=== PATIENT | male | born 1950 | race Caucasian/White ===

== ENCOUNTER 2022-06-12 06:31 | Day surgery (SDC) | payer MEDICARE, SELFPAY ==
[2022-06-12] VITALS (11 sets, daily range): BP systolic 142–180; BP diastolic 85–100; PULSE 61–68; RESP 14–20; TEMP 36.3; O2SAT 92–98; BMI 31.6
[2022-06-12] MEDS: lidocaine HCL 2 % MULTIDOSE 20 ML VIAL INJECTION (07:29)
[2022-06-12] MEDS: BUPIVACAINE 0.5% 30 ML INJECTION (07:29)
--- NOTE | 2022-06-12 07:56 | P.ORPRC_ITS ---
Procedure Note Date of procedure: 06/12/22 Procedure: Preop diagnosis: Left upper extremity carpal tunnel syndrome Postop diagnosis: Left upper extremity carpal tunnel syndrome Procedure: Left upper extremity carpal tunnel release Anesthesia: Local Surgeon: Demond Gilman MD administrative assistant office manager: HEYDI Roger EBL: 5 mL Complications: None Specimens: None Drains: None Indications: The patient has a history of left upper extremity carpal tunnel syndrome symptoms. Despite appropriate nonoperative management consisting of nighttime bracing and occupational therapy they continue to have symptoms. Operative intervention was recommended. The risks, benefits alternatives and expected outcomes were discussed in detail. These included but were not limited to: Infection, bleeding, injury to blood vessel or nerve, venous thromboembolism. All questions were answered to their satisfaction. The patient was placed supine on the operating room table. Local anesthesia was established with 0.5% Marcaine without epinephrine and 2% lidocaine without epinephrine. The hand was prepped and draped in usual sterile fashion. The limb was elevated the forearm pneumatic tourniquet was inflated to 250 mm of mercury. A longitudinal incision was made centered over the radial border of the ring f sydnie at the base of the palm. Subcutaneous dissection was sharply taken through the palmar fascia and the palmaris brevis to the transverse carpal ligament. The ligament was divided in line with the incision. Proximal and distal dissection was carried with tenotomy and Metzenbaum scissors for a wide decompression of the carpal tunnel. The tourniquet was released, bleeding was controlled with direct pressure. The wound was closed with a 3-0 nylon. A bulky dry dressing was applied, sponge and needle counts were correct x 2. The patient tolerated the procedure well, there were no apparent complications. They were sent to same day surgery in satisfactory condition. Plan: Use of the hand as tolerates. Discontinue the intraoperative dressing on postoperative day 3 and may get the wound wet as tolerates. Follow up in the office in 2 weeks for a wound check and suture removal.
== END 2022-06-12 08:29 | disposition home or self-care (01) ==
PROVIDERS: PCP Family Medicine; Visit Provider Orthopaedic Surgery
PROC: (CPT 64721; principal; 2022-06-12 07:30)
DX: G56.02 Carpal tunnel syndrome, left upper limb (principal)
CPT/HCPCS: 64721; J3490

== ENCOUNTER 2022-07-26 06:30 | Day surgery (SDC) | payer MEDICARE, SELFPAY ==
[2022-07-26] VITALS (10 sets, daily range): BP systolic 130–147; BP diastolic 58–76; PULSE 59–67; RESP 16; TEMP 36.3–36.6; O2SAT 96–97; BMI 31.6
[2022-07-26] MEDS: lidocaine HCL 2 % MULTIDOSE 20 ML VIAL 10 ML INJECTION (07:10)
[2022-07-26] MEDS: BUPIVACAINE 0.5% 30 ML 10 ML INJECTION (07:30)
--- NOTE | 2022-07-26 07:57 | PM.ORPRC ---
Procedure Note Date of procedure: 07/26/22 Procedure: Preop diagnosis: Right upper extremity carpal tunnel syndrome Postop diagnosis: Right upper extremity carpal tunnel syndrome Procedure: Right upper extremity carpal tunnel release Anesthesia: Local Surgeon: Demond Gilman MD technical services assistant: ALEXA Kaiser EBL: 5 mL Complications: None Specimens: None Drains: None Indications: The patient has a history of right upper extremity carpal tunnel syndrome symptoms. Despite appropriate nonoperative management consisting of nighttime bracing and occupational therapy they continue to have symptoms. Operative intervention was recommended. The risks, benefits alternatives and expected outcomes were discussed in detail. These included but were not limited to: Infection, bleeding, injury to blood vessel or nerve, venous thromboembolism. All questions were answered to their satisfaction. The patient was placed supine on the operating room table. Local anesthesia was established with 0.5% Marcaine without epinephrine and 2% lidocaine without epinephrine. The hand was prepped and draped in usual sterile fashion. The limb was elevated the forearm pneumatic tourniquet was inflated to 250 mm of mercury. A longitudinal incision was made centered over the radial border of the ring finger at the base of the palm. Subcutaneous dissection was sharply taken through the palmar fascia and the palmaris brevis to the transverse carpal ligament. The ligament was divided in line with the incision. Proximal and distal dissection was carried with tenotomy and Metzenbaum scissors for a wide decompression of the carpal tunnel. The tourniquet was released , bleeding was controlled with direct pressure. The wound was closed with a 3-0 nylon. A bulky dry dressing was applied, sponge and needle counts were correct x 2. The patient tolerated the procedure well, there were no apparent complications. They were sent to same day surgery in satisfactory condition. Plan: Use of the hand as tolerates. Discontinue the intraoperative dressing on postoperative day 3 and may get the wound wet as tolerates. Follow up in the office in 2 weeks for a wound check and suture removal.
== END 2022-07-26 08:19 | disposition home or self-care (01) ==
PROVIDERS: PCP Family Medicine; Visit Provider Orthopaedic Surgery
PROC: (CPT 64721; principal; 2022-07-26 07:30)
DX: G56.01 Carpal tunnel syndrome, right upper limb (principal)
CPT/HCPCS: 64721; J3490

== ENCOUNTER 2023-06-03 08:00 | Outpatient (RCR) | payer MEDICARE, SELFPAY | END 2023-06-27 14:39 | disposition home or self-care (01) | PROVIDERS: PCP Family Medicine; Visit Provider Physician Assistant Medical | DX: M67.88 Other specified disorders of synovium and tendon, other site (principal); Z51.89 Encounter for other specified aftercare | CPT/HCPCS: 97110; 97140; 97161 ==

== ENCOUNTER 2025-06-08 08:57 | Outpatient (CLI) | payer MEDICARE, SELFPAY | END 2025-06-08 08:58 | disposition home or self-care (01) | LOC: AMB 06-11 02:21 | PROVIDERS: PCP Family Medicine; Visit Provider Student in an Organized Health Care Education/Training Program | DX: S89.92XA Unspecified injury of left lower leg, initial encounter (principal); W17.2XXA Fall into hole, initial encounter; Y92.007 Garden or yard of unspecified non-institutional (private) residence as the place of occurrence of the external cause | CPT/HCPCS: A0425; A0427 ==

== ENCOUNTER 2025-06-08 09:34 | Emergency (ER) | payer MEDICARE, SELFPAY ==
--- NOTE | 2025-06-08 09:39 | CRLHL7_ITS ---
For Patients: As a result of the Century Cures Act, medical imaging exams and procedure reports are released immediately into your electronic medical record. You may view this report before your referring provider. If you have questions, please contact your health care provider. INDICATION: fall, knee pain, appears to have torn patellar tendon. (Sic) COMPARISON: None available. TECHNIQUE: Three views of the left knee. FINDINGS: Mineralization: Normal. Alignment: Normal. Bones and Joints: No fracture is identified. Mild medial tibiofemoral and patellofemoral osteoarthrosis. Soft Tissues: Prepatellar soft tissue swelling. No evidence of patella ben on the cross-table lateral view. The lower patellar tendon appears to be redundant. A partial patellar tendon tear is not excluded. No significant joint effusion. IMPRESSION: Prepatellar soft tissue swelling. No evidence of patella ben on the cross-table lateral view. The lower patellar tendon appears to be redundant. A partial patellar tendon tear is not excluded. No significant joint effusion. No fracture or dislocation. Dictated by Andi Fairbanks MD @ 06/08/2025 10:56:33 AM (Electronically Signed)
[2025-06-08 09:46] VITALS: BP 114/89; PULSE 88; RESP 18; TEMP 36.3; O2SAT 96; BMI 31.9
--- OUTSIDE RECORDS SUMMARY | 2025-06-08 10:34 | XMS_ITS | Encounter Summary ---
Author Organization [employer] Address [address] [place] [address] Care Team Providers Care Abrasive Grinder Name Role Phone Jose Alfredo Elizabeth MD Primary Care Provider [phone]- [phone] Encounter Details Date Type Department Care Team (Late st Contact Info) Description 11/30/2013 Orders Only [facility] [address] [place] [address] Law Thompson MD [address] [facility] [place] [address] Social History Tobacco Use Types Packs/Day Years Used Date Smoking Tobacco: Never Assessed Sex and Gender Information Value Date Recorded Sex Assigned at Not on file Legal Sex Male 6:44 AM CDT Gender Identity Not on file Sexual Orientation Not on file documented as of this encounter Plan of Treatment Not on file documented as of this encounter Visit Diagnoses Not on filedocumented in this encounter Care Teams Abrasive Grinder Relationship Specialty Start Date End Date Jose Alfredo Elizabeth MD [address] [place] [address] PCP - General 11/26/13 documented as of this encounter
--- OUTSIDE RECORDS SUMMARY | 2025-06-08 10:34 | XMS_ITS | Encounter Summary ---
Author Organization [employer] Address [address] [place] [address] Care Team Providers Care Medical Oncologist Name Role Phone Jose Alfredo Elizabeth MD Primary Care Provider +1- [phone] Encounter Details Date Type Department Care Team (Late st Contact Info) Description 01/19/2025 Notes/Orders [facility] [place] [address] [place] [address] Tom Moreno MD [address] [facility] [place] [address] Social History Tobacco Use Types Packs/Day Years Used Date Smoking Tobacco: Never Smokeless Tobacco: Never Alcohol Use Standard Drinks/Week Comments Not Asked 0 (1 standard drink = 0.6 oz pur e alcohol) ocassioanlly Sex and Gender Information Value Date Recorded Sex Assigned at Not on file Legal Sex Male 6:44 AM CDT Gender Identity Not on file Sexual Orientation Not on file documented as of this encounter Plan of Treatment Not on file documented as of this encounter Visit Diagnoses Not on filedocumented in this encounter Care Teams Medical Oncologist Relationship Specialty Start Date End Date Jose Alfredo Elizabeth MD [address] [place] [address] PCP - General 11/26/13 documented as of this encounter
--- OUTSIDE RECORDS SUMMARY | 2025-06-08 10:34 | XMS_ITS | Clinical Summary ---
Author Organization [facility] Address [address] [place] [address] Care Team Providers Care Inner Tube Tuber Machine Operator Name Role Phone Jose Alfredo Elizabeth MD Primary Care Provider +1- [phone] Source Comments You are receiving this document as you are listed as the primary care provider,follow-up provider, or the patient has been referred to you for consultation.This is in compliance with the Medicare and[facility] EHR Incentive Program,which states Providers who transition their patient to another setting of careor provider of care or refers their patient to another provider of care shouldprovide summary care record for each transition of care or referral. [facility] [employer] Allergies No known active allergies Medications aspirin EC 81 MG enteric coated tablet Take 1 Tablet (81 mg) by mouth daily. 4 Active quinapril (ACCUPRIL) 10 MG tablet Take 1 Tablet (10 mg) by mouth daily at bedtime. 4 Active simvastatin (ZOCOR) 40 MG tablet Take 1 Tablet (40 mg) by mouth daily at bedtime. 4 Active atorvastatin (LIPITOR) 40 MG tablet Take by mouth. 4 Active lisinopril (ZESTRIL) 10 MG tablet Take 1 Tablet (10 mg) by mouth daily. 4 Active hydrOXYzine HCl (ATARAX) 25 MG tablet Take 1-2 Tablets (25-50 mg) by mouth every 4 hours as needed for Pain. 25 Tablet 1 4 Active Additional Information Patient not taking.Reported on 04/27/2024 HYDROcodone-radha taminophen (NORCO) 5-325 MG tablet Take 1-2 Tablets by mouth every 4 hours as needed. 25 Tablet 4 Active Additional Information Patient not taking.Reported on 04/27/2024 Active Problems Problem Noted Date Diagnosed Date Pain, joint, ankle and foot, right 03/02/2024 Social History Tobacco Use Types Packs/Day Years Used Date Smoking Tobacco: Never Smokeless Tobacco: Never Alcohol Use Standard Drinks/Week Comments Not Asked 0 (1 standard drink = 0.6 oz pur e alcohol) ocassioanlly Sex and Gender Information Value Date Recorded Sex Assigned at Not on file Legal Sex Male 6:44 AM CDT Gender Identity Not on file Sexual Orientation Not on file Last Filed Vital Signs Vital Sign Reading Time Taken Comments Blood Pressure 130/78 03/13/2024 10:15 AM CDT Pulse 57 03/13/2024 10:15 AM CDT Temperature 36.7 C (98 F) 03/13/2024 9:42 AM CDT Respiratory Rate 18 03/13/2024 10:15 AM CDT Oxygen Saturation 98% 03/13/2024 10:15 AM CDT Inhaled Oxygen Concentration - - Weight 102.5 kg (226 lb) 03/13/2024 7:13 AM CDT Height 182.9 cm (6') 03/13/2024 7:13 AM CDT Body Mass Index 30.65 03/13/2024 7:13 AM CDT Plan of Treatment Health Maintenance Due Date Last Done Comments Colon Cancer Screening Plan Due 1950 Hep C Screening (Preventive Services) 1950 Medicare Welcome Visit 1950 Cholesterol 01/31/1987 DTaP/Tdap/Td Vaccine (2 - Tdap) 12/05/2020 12/05/2010 COVID-19 Vaccine ( season) 2025 06/04/2022, 06/14/2021, 10/13/2020, Additional history exists Influenza Vaccine (#1) 2025 3, 06/04/2022, 06/14/2021, Additional history exists RSV Vaccine (1 - 1-dose 75+ series) 01/31/2027 Pneumococcal Vaccine 50+ Yrs Completed 06/26/2018, 07/02/2017 Zoster/Shingles Vaccine Completed 12/01/19, 08/06/2020, 11/03/2012 HepA Vaccine Aged Out No longer eligi ble based on patient's age to complete this topic HepB Vaccine Aged Out No longer eligi ble based on patient's age to complete this topic Hib Vaccine Aged Out No longer eligi ble based on patient's age to complete this topic MCV4 Vaccine Aged Out No longer eligi ble based on patient's age to complete this topic Meningococcal B Vaccine Aged Out No l onger eligible based on patient's age to complete this topic Medical Devices Implanted Type Area Chief Strategy Officer Device Identifier Shelf Expiration Date Model / Serial / Lot Scr Tnds Peek Vnt 8x23mm - [id number] Implanted:Qty: 1 on 03/13/2024 by Tom Moreno MD at [facility] Right: [employer] 06/13/2028 AR-[id number] / 0 / [id number] Miller Cskr 4.5x14 - [id number] Implanted:Qty: 2 on 03/13/2024 by Tom Moreno MD at [facility] Right: [employer] 04/13/2027 [id number] / 0 / [id number] Insurance UCARE MEDICARE UCARE MEDICARE [facility] Care Teams Inner Tube Tuber Machine Operator Relationship Specialty Start Date End Date Jose Alfredo Elizabeth MD [address] [address] PCP - General 11/26/13
--- OUTSIDE RECORDS SUMMARY | 2025-06-08 10:34 | XMS_ITS | Clinical Summary ---
Author Organization [facility] Address [address] [place] [id number] Care Team Providers Care Upsetting Machine Operator Name Role Phone Surya Ribera MD Unavailable [phone] Allergies No known active allergies Medications lisinopriL (PRINIVIL; ZESTRIL) 10 mg tabletIndications:H TN (hypertension) TAKE 1 TABLET BY MOUTH EVERY DAY 90 Tablet 5 Active atorvastatin (LIPITOR) 40 mg tabletIndications:M ixed hyperlipidemia TAKE 1 TABLET (40 MG) BY MOUTH AT BEDTIME. 90 Tablet 5 Active Active Problems Problem Noted Date Diagnosed Date Pseudopolyposis of colon wit hout complication, unspecified part of colon 01/04/2023 Type 2 diabetes mellitus wit hout complication, without long-term current use of insulin 08/29/2021 Elevated glucose 06/20/2017 Prostate cancer 10/26/2011 Mixed hyperlipidemia 10/26/2011 Benign neoplasm of colon 08/09/2009 Overview (07/17/2022): Colonoscopy 07/2009 polyps repeat in 3 years Colonoscopy 02/2016 multiple polyps repeat in 3 years Colonoscopy 04/2019 polyps, repeat in 3 years Colonoscopy 06/2022 1-TA, repeat in 5 years Unspecified essential hypertension Encounters Date Type Department Care Team Description 05/11/2025 Telephone [facility] [address] [place] [address] Anthony Haji MD Lab 04/15/2025 Refill [facility] [address] [place] [address] Votel, Anthony Villalpando MD Refill Request (Lisinopril, Atorvastatin) from Last 3 Months Immunizations Immunization Administration Dates Next Due COVID-19 vaccine (Moderna 10 0mcg/0.5mL) PF, MDV 10/13/2020 Influenza Virus, Unspecified 05/24/2010 Influenza, High-dose Inactivated 04/14/2018 Influenza, High-dose Quadriv alent Inactivated 06/04/2022 Influenza, IIV3 (Age 6-35 mos) 04/30/2011 Influenza, IIV3 (Age >=3 years) 04/30/2011,05/24 Influenza, IIV4 03/29/2016 Influenza, IIV4 (=>6mos) MDV 04/15/2017 Influenza, Inactivated AIIV4 (Age 65+ Years) Preserv Free 04/29/2023 Influenza, Inactivated IIV3 (Age 65+ Years) Preserv Free 06/14/2021,06/01/2019 Pneumococcal Poly,23-Valent (Pneumovax) 06/26/20 18 Pneumococcal conj 13-Valent (Prevnar 13) 017 TD, UNSPECIFIED 07/15/1998 Td (Age >=7 Years) 07/15/2001,10/17/1998, 999 Tdap 12/05/2010 Zoster (Shingrix-RZV, recombinant) 11/30/2020, Zoster (Zostavax-ZVL, live) 11/03/2012 Family History Medical History Relation Name Comments Hyperlipidemia Brother 2 Good Health Daughter 2 Heart Disease Father [place] age 40 Unknown Maternal Grandfather Unknown Maternal Grandmother Hyperlipidemia Mother Hypertension Mother Unknown Paternal Grandfather Unknown Paternal Grandmother Good Health Sister 2 Good Health Son 3 Good Health Son 4 Cancer Son 5 melanoma Relation Name Status Comments Brother 1 Alive Brother 2 Daughter 1 Alive Daughter 2 Father Maternal Grandfather Maternal Grandmother Mother Paternal Grandfather Paternal Grandmother Sister 1 Alive Sister 2 Son 1 Alive Son 2 Alive Son 3 Son 4 Son 5 Social History Tobacco Use Types Packs/Day Years Used Date Smoking Tobacco: Never Smokeless Tobacco: Never Tobacco Cessation:Counseling Given: Yes Alcohol Use Standard Drinks/Week Comments Yes 2 (1 standard drink = 0.6 oz pur e alcohol) 2 drinks per week PHQ-2 Answer Date Recorded PHQ-2 TOTAL SCORE 0 01/03/2023 Social Connections Answer Date Recorded Frequency of Communication with Friends and Fami ly 0 04/30/2023 Financial Resource Strain Answer Date R ecorded Difficulty of Paying Living Expenses 3 04/30/2023 Difficulty of Paying Living Expenses Not on file 04/30/2023 Food Insecurity Answer Date Recorded Worried About Running Out of Food in the Last Ye ar 1 04/30/2023 Transportation Needs Answer Date Record ed Lack of Transportation (Medical) 1 04/30/2023 Housing Stability Answer Date Recorded Unable to Pay for Housing in the Last Year 1 04/30/2023 Sex and Gender Information Value Date Recorded Sex Assigned at Not on file Legal Sex Male 7:05 AM INFORMATION SYSTEMS OPERATOR Gender Identity Not on file Sexual Orientation Not on file Occupation Industry Job Start Date Job End Date sales for [employer] Not on file Not on file Not on file Obstetrics History Last Filed Vital Signs Vital Sign Reading Time Taken Comments Blood Pressure 123/77 03/11/2024 4:04 PM CDT Pulse 83 03/11/2024 4:04 PM CDT Temperature 36.7 C (98.1 F) 03/11/2024 4:04 PM CDT Respiratory Rate 16 01/19/2019 9:34 AM CDT Oxygen Saturation 95% 03/11/2024 4:04 PM CDT Inhaled Oxygen Concentration - - Weight 102.6 kg (226 lb 4.8 oz) 03/11/2024 4:04 PM CDT Height 182.5 cm (5' 11.85) 01/03/2023 9:55 AM C DT Body Mass Index 30.82 01/03/2023 9:55 AM CDT Plan of Treatment Upcoming Encounters Date Type Department Care Team (Late st Contact Info) Description 06/18/2025 7:00 AM INFORMATION SYSTEMS OPERATOR Orders Only [facility] [address] [place] [address] [place], [place] 06/21/2025 10:40 AM INFORMATION SYSTEMS OPERATOR Office Visit [facility] [address] [place] [phone] Mounika Dalton OD [address] [facility] [place] [address] 06/22/2025 8:20 AM INFORMATION SYSTEMS OPERATOR Office Visit [facility] [address] [place] [address] Anthony Haji MD [address] [facility] [address] Health Maintenance Due Date Last Done Comments Hepatitis C screening for age 18-79 01/31/1970 Tetanus booster 12/05/2020 12/05/2010, 07/2001, 10/17/1998, Additional history exists BMI (ht and wt on same day) for age 18+ 01/04/2024 01/03/2023, 08/29/2021, 07/12/2020, Additional history exists Depression screening for age 12+ 01/04/2024 01/03/2023, 08/29/2021, 08/28/2021, Additional history exists Medicare Wellness for age 65+ 01/04/2024 01/03/2023, 08/29/2021, 07/12/2020, Additional history exists COVID-19 vaccine series ( season) 2025 06/04/2022, 06/14/2021, 10/13/2020, Additional history exists Influenza Vaccine (#1) 2025 , 06/14/2021, 06/01/2019, Additional history exists RSV vaccine for adults or (1 - 1-dose 75+ series) 01/31/2027 Colonoscopy through age 75 07/03/202707/03, 04/21/2019, 04/21/2019, Additional history exists Lipids for age 45-75 03/11/2029 03/11/2024, 01/03/2023, 08/29/2021, Additional history exists Pneumococcal series for age 50+ Completed 06/26/2018, 07/02/2017 Zoster (shingles) series for age 50+ Completed 11/30/2020, 08/06/2020, 11/03/2012 Hepatitis B series for 19+ Aged Out N o longer eligible based on patient's age to complete this topic Procedures Procedure Name Priority Date/Time Associated Diagnosis Comments LIPID PANEL W REFLEX MEASURED LDL Routine 03/11/2024 3:52 PM CDT Mixed hyperlipidemia COLONOSCOPY 07/03/2022 8:37 AM INFORMATION SYSTEMS OPERATOR from Last 3 Months or Most Recently Relevant to Health Maintenance Results * LIPID PANEL W REFLEX MEASURED LDL (03/11/2024 3:52 PM CDT) CHOLESTEROL,TOTAL 168 100 - 199 mg/dL 03/12/2024 2:41 AM CDT [facility] [employer] [facility] Comment: Cholesterol, Total Reference Ranges Desirable <200 mg/dL Borderline 200-239 mg/dL High >=240 mg/dL TRIGLYCERIDES 124 <150 mg/dL 03/12/2024 2:41 AM CDT [facility] HDL CHOLESTEROL 45 >40 mg/dL 2:41 AM CDT [facility] NON-HDL CHOLESTEROL 123 <145 mg/dl 03/12/2024 2:41 AM CDT [facility] CHOL/HDL RATIO 3.73 <4.50 03/12/2024 2:41 AM CDT [facility] LDL CHOLESTEROL 98 <=130 mg/dL 03/12/2024 2:41 AM CDT [facility] VLDL CHOLESTEROL 25 <=30 mg/dL 03/12/2024 2:41 AM CDT [facility] PROVIDER ORDERED STATUS RANDOM 03/12/2024 2:41 AM CDT [facility] Blood BLOOD SPECIMEN / Unknown Venipuncture / Unknown 03/11/2024 3:52 PM CDT 03/11/2024 3:54 PM CDT us Anthony Haji MD CHEMISTRY Final Re sult [facility] [address] [place] [address], * COLONOSCOPY (07/03/2022 8:37 AM INFORMATION SYSTEMS OPERATOR) 07/03/2022 8:37 AM INFORMATION SYSTEMS OPERATOR Narrative Transcriptions Lc, Nathan Kessler MD - 07/19/2022 12:45 PM CST Patient Name: Deangelo Perez Procedure Date: 07/03/2022 Gender: Male Date of : 1950 Admit Type: Outpatient Procedure: Colonoscopy Proceduralist: Nathan Platt MD , Shreya Lewis (Nurse), Iqra Ulrich RN (Nurse) Indications/Pre-Op Diagnosis: High risk colon cancer surveillance:Personal history of multiple (3 or more) adenomas Medications: Fentanyl 100 micrograms IV, Midazolam 2 mgIV, The level of sedation administered wasmoderate Procedure Description: The patient had risks, benefits and alternatives explained to andgave informed consent. The patient had a stable cardiopulmonary status and judged an adequate candidate for conscious sedation. The endoscope [id number] was passed through the anus andadvanced to the cecum, identified by appendiceal orifice and ileocecal valve.The colonoscopy was performed without difficulty. The patient toleratedthe procedure well. The quality of the bowel preparation was good. The ileocecal valve, appendiceal orifice, and rectum were photographed. Complications: No immediate complications. Estimated Blood Loss & Specimen: Estimated blood loss: none. Specimen collected - Yes and sent to Laboratory Findings: The perianal and digital rectal examinations were normal. Two sessile polyps were found in the transverse colon. The polypswere 3 mm in size. These polyps were removed with a cold snare. Resectionand retrieval were complete. Two sessile polyps were found in the transverse colon. The polypswere 2 mm in size. These polyps were removed with a cold biopsy forceps. Resection and retrieval were complete. Scattered small and large-mouthed diverticula were found in thesigmoid colon and descending colon. The exam was otherwise without abnormality. Impressions/Post-Op Diagnosis: - Two 3 mm polyps in the transverse colon, removed with a cold snare. Resected and retrieved. - Two 2 mm polyps in the transverse colon, removed with a cold biopsy forceps. Resected and retrieved. - Diverticulosis in the sigmoid colon and in the descending colon. - The examination was otherwise normal. Recommendation: - Patient has a contact number available for emergencies. The signsand symptoms of potential delayed complications were discussed with the patient. Return to normal activities tomorrow. Written discharge instructions were provided to the patient. - Resume previous diet. - Continue present medications. - Await pathology results. Moderate Sedation: A time out was performed before the procedure. Moderate (conscious) sedation was administered by the endoscopy nurse and supervised bythe endoscopist. The following parameters were monitored: oxygensaturation, heart rate, blood pressure, EKG, CO2, respiratory rate, adequacy of pulmonary ventilation and reponse to care. Please refer to the patient's medical record flowsheets and nursing notes for moderate sedation details. Total physician intraservice time was 20 minutes. Nathan Platt MD 07/03/2022 9:14:15 AM This report has been signed electronically. Note Initiated On: 07/03/2022 8:37 AM Procedure Code(s): --- Professional --- 55239, Colonoscopy, flexible; with removalof tumor(s), polyp(s), or other lesion(s) bybennie technique 25765, 59, Colonoscopy, flexible; withbiopsy, single or multiple Diagnosis Code(s): --- Professional --- Z86.010, Personal history of colonicpolyps D12.3, Benign neoplasm of transverse colon (hepatic flexure or splenic flexure) K57.30, Diverticulosis of large intestine without perforation or abscess withoutbleeding CPT copyright 2020 [employer]. All rights reserved. The codes documented in this report are preliminary and upon fitter up reviewmay be revised to meet current compliance requirements. Scope In: 8:46:15 AM Scope Withdrawal Time 0 hours 11 minutes 44 seconds Scope Out: 9:04:16 AM Nathan Platt MD PROCEDURE ORD Edited Re sult - Final from Last 3 Months or Most Recently Relevant to Health Maintenance Insurance [employer] Care Teams Upsetting Machine Operator Relationship Specialty Start Date End Date Surya Ribera MD Surgery - Urology 01/19/14
--- NOTE | 2025-06-08 10:42 | ED.LOWEXIN ---
HPI - Extremity Injury (Lower) General Date Seen: 06/08/25 Chief Complaint: Extremity Pain/Injury, Lower Stated Complaint: Fall Time Seen by Provider: 06/08/25 09:39 Source: patient Mode of arrival: EMS Limitations: no limitations History of Present Illness HPI Narrative: Patient is a 75-year-old male with a previous left Achilles tendon repair 1 year ago presenting to the emergency department for left knee pain. He states he was working outside when he slipped on the wet ground and felt his left knee give out. Has been unable to move his left leg since then. States he currently has no pain. Unable to put any pressure on his knee. Is not able to flex or extend the knee. No other concerns noted. Related Data Home Medications ?Medication ?Instructions ?Recorded ?Confirmed atorvastatin 40 mg tablet 40 mg PO QHS 06/25/22 06/08/25 quinapril 10 mg tablet 10 mg PO QDAY 06/25/22 06/08/25 Allergies Allergy/AdvReac Type Severity Reaction Status Date / Time No Known Drug Allergies Allergy Verified 06/08/25 09:46 Review of Systems Narrative: Pertinent systems reviewed and were negative unless stated in HPI PFSH PFSH Surgical History (Updated 07/26/22 @ 14:24 by Shivani De Guzman) History of carpal tunnel surgery of right wrist (07/26/22) ?Z98.890 - Other specified postprocedural states (ICD-10) History of carpal tunnel surgery of left wrist (06/12/22) ?Z98.890 - Other specified postprocedural states (ICD-10) Social History (Reviewed 08/08/22 @ 13:[address]ina ~ [facility], [facility]) Smoking Status: Never smoker Do you use any of these nicotine containing products: None Second hand tobacco smoke exposure: No Exam Narrative: Exam Narrative: Const: Well-nourished, Well-developed, in mild distress Eyes: PERRL, no conjunctival injection, and symmetrical lids HENT: Atraumatic external nose and ears. Moist mucous membranes. MSK: Appears to have a high riding left patella. Cannot feel patellar tendon. He is unable to flex his knee gets resistant and unable to extend his knee at all. Skin: Warm, Dry. No rashes or lesions. Neuro: Normal Muscle tone, No focal neurological deficits. Psych: Awake, Alert, & Oriented x3. Appropriate mood and affect. Const: Vital Signs, click to edit/add: Vital Signs - 24 hr 06/08/25 09:46 Temperature 97.3 F L Pulse Rate [Pulse Oximeter] 88 Respiratory Rate 18 Blood Pressure [Ri ght Upper Arm] 114/89 Pulse Oximetry 96 Oxygen Delivery Me thod Room Air Course Vital Signs Vital signs: Initial Vital Signs Temperature 97.3 F L 06/08/25 09:46 Temperature Source Temporal Artery Scan 06/08/25 09:46 Pulse Rate 88 06/08/25 09:46 Respiratory Rate 18 06/08/25 09:46 Blood Pressure 114/89 06/08/25 09:46 Blood Pressure Mean 97 06/08/25 09:46 Blood Pressure Position Sitting 06/08/25 09:46 Pulse Oximetry 96 06/08/25 09:46 Oxygen Delivery Method Room Air 06/08/25 09:46 Vital Signs Temperature 97.3 F L 06/08/25 09:46 Pulse Rate 88 06/08/25 09:46 Respiratory Rate 18 06/08/25 09:46 Blood Pressure 114/89 06/08/25 09:46 Pulse Oximetry 96 06/08/25 09:46 Oxygen Delivery Method Room Air 06/08/25 09:46 Temperature 97.3 F L 06/08/25 09:46 Pulse Rate 88 06/08/25 09:46 Respiratory Rate 18 06/08/25 09:46 Blood Pressure 114/89 06/08/25 09:46 Pulse Oximetry 96 06/08/25 09:46 Oxygen Delivery Method Room Air 06/08/25 09:46 Medications Administered Medications: Discontinued Medications Generic Name Dose Route Start Last Admin Trade Name Freq PRN Reason Stop Dose Admin Acetaminophen 1,000 mg 06/08/25 11:12 06/08/25 11:19 Acetaminophen 500 Mg Tablet PO 06/08/25 11:13 1,000 mg ONCE ONE Administration Discharge Plan Discharge Clinical Impression: Quadriceps tendon rupture Qualifiers: Encounter type: initial encounter Laterality: left Qualified Code(s): S76.112A - Strain of left quadriceps muscle, fascia and tendon, initial encounter Acute medial meniscus tear of left knee Qualifiers: Encounter type: initial encounter Qualified Code(s): S83.242A - Other tear of medial meniscus, current injury, left knee, initial encounter Patient Disposition: Home, Self-Care Condition: Stable Instructions: Tendon Rupture (ED), Meniscus Tear (ED) Additional Instructions: You can weight bear as tolerated just make sure your wearing the knee immobilizer. Make sure to use the crutches or walker. Follow-up with [facility]. Call them at . Or you can follow-up with your previous orthopedic provider. Take Tylenol and ibuprofen for pain. Return to emergency department for new or worsening symptoms. Prescriptions: No Action quinapril 10 mg tablet 10 mg PO QDAY Patient Comments: TAKE 1 TABLET BY MOUTH EVERY DAY atorvastatin 40 mg tablet 40 mg PO QHS Patient Comments: TAKE 1 TABLET BY MOUTH AT BEDTIME Follow Up/Referrals: Anthony Haji MD [Primary Care Provider, Family Practice] Stand Alone Forms: [employer] Info Instructions
--- NOTE | 2025-06-08 11:12 | CRLHL7_ITS ---
For Patients: As a result of the Century Cures Act, medical imaging exams and procedure reports are released immediately into your electronic medical record. You may view this report before your referring provider. If you have questions, please contact your health care provider. EXAM: MRI OF THE LEFT KNEE, WITHOUT CONTRAST CLINICAL INDICATION: Quadriceps tendon injury following fall. Abnormal radiographs. COMPARISON PLAIN FILMS: 06/08/2025. COMPARISON CROSS-SECTIONAL IMAGING STUDIES: None available at time of interpretation. TECHNICAL: Axial, sagittal and coronal T1, PD, PD FS and T2 FS images. Knee coil. FINDINGS: MEDIAL COMPARTMENT: Medial Meniscus: High-grade tear in the posterior horn medial meniscus and root attachment junction with loss of hoop stress and peripheral extrusion of the medial meniscus. Articular Cartilage: Mild thinning and fissuring centrally with more focal moderate chondral thinning posteriorly in the medial femoral condyle (grade 2-3). - LATERAL COMPARTMENT: Lateral Meniscus: Normal size and morphology without tear. Articular Cartilage: Mild chondral fissuring posteriorly (grade 2). 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 - CRUCIATE LIGAMENTS: Anterior Cruciate Ligament: Normal. Posterior Cruciate Ligament: Increased signal and thickening in the PCL consistent with mucoid degeneration. No PCL tear. - MEDIAL COLLATERAL LIGAMENT AND POSTEROMEDIAL CORNER COMPLEX: Medial Collateral Ligament: Normal. Medial Head of the Gastrocnemius and Semimembranosus Tendons: Normal. - LATERAL COLLATERAL LIGAMENT COMPLEX AND POSTEROLATERAL CORNER COMPLEX: Fibular Collateral Ligament: Normal. Distal Biceps Femoris Tendon Complex: Normal. Iliotibial Band: Normal. Popliteus Tendon: Normal. Posterolateral Corner Capsule: Normal. - EXTENSOR MECHANISM: Distal Quadriceps Tendon: Full-thickness, full width tear of the distal quadriceps tendon near the patellar insertion. Small fluid-filled gap without significant proximal retraction of the quadriceps tendon. Thickening and increased signal in the quadriceps tendon consistent with liys-km-mzgxsgyl tendinopathy. Patellar Tendon: Normal. Medial Patellar Retinaculum and Medial Patellofemoral Ligament: Distal quadriceps tendon tear extends into the anterior margin of the medial patellofemoral retinaculum. Lateral Patellar Retinaculum: Distal quadriceps tendon tear extends into the anterior margin of the lateral patellofemoral retinaculum. No patellar tilt or subluxation. Patella baja. Normal trochlear depth. Normal lateral trochlear inclination. - JOINT SPACE: Effusion: Small complex knee joint effusion. The knee joint effusion extends into the anterior subcutaneous tissues. Joint Bodies: None seen. - OSSEOUS STRUCTURES: No fracture, marrow edema or marrow replacement process. - PERIARTICULAR SOFT TISSUES: Periarticular Cysts or Ganglia: None. Bursae: No prepatellar, superficial infrapatellar, deep infrapatellar, pes anserinus or semimembranosus/MCL bursitis. Musculature: Mild atrophy of the distal semimembranosus and long head of the biceps femoris musculature. Mild atrophy in the distal most semitendinosis musculature which is visualized in a short segment. No muscle edema. Subcutaneous and Soft Tissues: Anterior fluid in edema contiguous with the knee joint. Neurovascular Structures: Normal. IMPRESSION: 1. Full-thickness full width tear of the distal quadriceps tendon with extension into the medial and lateral patellofemoral retinaculum. Vfrt-md-ublusbvt distal quadriceps tendinopathy. 2. High-grade tear of the posterior horn medial meniscus and root attachment junction with loss of hoop stress. 3. Bodv-cy-wympgwnh chondromalacia in the medial compartment. 4. Mild chondromalacia posteriorly in the lateral compartment. 5. 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 6. Mucoid degeneration of the PCL. 7. Complex knee joint effusion which communicates with the anterior subcutaneous tissues. 8. Atrophy of the distal common hamstring musculature. Dictated by Carlos Vyas MD @ 06/08/2025 12:28:54 PM (Electronically Signed)
[2025-06-08] MEDS: ACETAMINOPHEN 500 MG TABLET 1000 MG PO (11:19)
== END 2025-06-08 13:50 | disposition home or self-care (01) ==
PROVIDERS: Emergency Provider Student in an Organized Health Care Education/Training Program; PCP Family Medicine
DX: S76.112A Strain of left quadriceps muscle, fascia and tendon, initial encounter (principal); S83.242A Other tear of medial meniscus, current injury, left knee, initial encounter; W01.0XXA Fall on same level from slipping, tripping and stumbling without subsequent striking against object, initial encounter
CPT/HCPCS: 73562; 73721; 99284; 99285; A9270